=== PATIENT | male | born 1995 | race Caucasian/White ===

== ENCOUNTER 2020-09-16 17:15 | Emergency (ER) | payer BC ==
[~2020-09-16] VITALS: Ht 172.7 cm; Wt 54.4 kg
== END 2020-09-16 18:02 | disposition home or self-care (01) ==
LOC: ED 17:15
DX: S86.012A Strain of left Achilles tendon, initial encounter (principal); X50.9XXA Other and unspecified overexertion or strenuous movements or postures, initial encounter; Y93.67 Activity, basketball; F17.200 Nicotine dependence, unspecified, uncomplicated; Z88.5 Allergy status to narcotic agent
CPT/HCPCS: 99283; A9270; L4386

== ENCOUNTER 2020-11-24 12:50 | Emergency (ER) | payer BC ==
[~2020-11-24] VITALS: Ht 172.7 cm; Wt 58.7 kg
[2020-11-24] MEDS ORDERED: HYDROCODON-ACE1 EA10 PO (14:23)
== END 2020-11-24 14:38 | disposition home or self-care (01) ==
LOC: ED 12:50
DX: S46.911A Strain of unspecified muscle, fascia and tendon at shoulder and upper arm level, right arm, initial encounter (principal); X50.9XXA Other and unspecified overexertion or strenuous movements or postures, initial encounter; F17.200 Nicotine dependence, unspecified, uncomplicated; Z88.5 Allergy status to narcotic agent
CPT/HCPCS: 73030; 99283-25

== ENCOUNTER 2022-02-20 03:49 | Inpatient (IN) | payer OTHER ==
[~2022-02-20] VITALS: Ht 172.7 cm; Wt 58.7 kg
[~2022-02-20 03:49] MED LIST: HYDROCODON-ACE1 EA10 PO; NUFOLA CAPSULE1 EAC1 PO
[2022-02-20] MEDS ORDERED: METRONIDAZOLE250 MG PO (03:59)
--- NOTE | 2022-02-20 06:38 | NUR ---
PATIENT ARIVED TO THE FLOOR VIA STRETCHER. PATIENT ABLE TO AMBULATED FROM STRETCHER TO BED. ADMISSION COMPLETED. VITALS TAKEN ADN RECORDED. WIPE DOWN COMPLETED. PRE-OP CHECKLIST COMPLETED. PATIENT DENIES ANY NEEDS. NPO AT THIS TIME. MOM AND GF PRESENT IN ROOM. ALL QUESTIONS ANSWERED. CALL LIGHT IN REACH. WARM BLANKETS PROVIDED.
--- NOTE | 2022-02-20 07:39 | NUR ---
Report received from night RN - MD in room clearing pt for surgery - pt and family state understanding and have no need at this time. Call made to day surgery to communicate Pt is ready for OR.
--- NOTE | 2022-02-20 08:01 | NUR ---
PT OFF FLOOR TO OR
--- NOTE | 2022-02-20 08:38 | NUR ---
TO PATIENT ROOM TO COMPLETE CASE MANAGEMENT ASSESSMENT. PATIENT IN OR AND MOTHER ASLEEP ON THE COUCH. WILL RETURN FOR ASSESSMENT AT LATER TIME.
--- NOTE | 2022-02-20 11:17 | NUR ---
02/20/22 1117 [address] 1054 PATIENT INTO RECOVERY ROOM. REPORT RECIEVED FROM JAMAAL DAMON. PATIENT HAS OPA IN WITH A MASK OVER AT 6 LITERS. RN HOLDING AIRWAY BY JAW THRUST TO PROVIDE AIRWAY SUPPORT. BREATHING EQUAL AND UNLABORED. PATIENT IS NONAROUSABLE. SURGICAL SITES ARE CLEAN, DRY AND INTACT. PATIENT IVF INFUSING. SCD'S APPLIED. 1100 PATIENT IS STILL NONAROUSABLE. AIRWAY STILL HELD BY RN. OPA IN AND MASK OVER AT 6 LITERS. PATIENT BREATHING EQUAL AND UNLABORED. TELE ON SR. IVF INFUSING. 1103 IV TYLENOL STARTED. PATIENT HOLDING OWN AIRWAY NOW. OPA STILL INTACT AND MASK AT 6 LITERS. BREATHING EQUAL AND UNLABORED. OXYGEN SATURATION AT 95% AND ABOVE. PATIENT IS REACTIVE. 1104 OPA REMOVED AND MASK STILL ON AT 6 LITERS. BREATHING EQUAL AND LABORED. OXYGEN SATURATIONS ABOVE 95%. SR ON TELE. PATIENT IS REACTIVE BUT DOES NOT RESPOND TO VERBAL STIMULI. IVF INFUSING. 1110 OXYGEN TITRATED TO ROOM AIR. PATIENT IS DROWSY. PATIENT OXYGEN SATURATIONS ARE ABOVE 95%. BREATHING EQUAL AND UNLABORED. SR ON TELE. PATIENT DENIES ANY PAIN AND NAUSEA. IVF INFUSING.
--- NOTE | 2022-02-20 11:48 | NUR ---
PT ARRIVES TO ROOM FROM OR VIA STRETCHER - DENIES PAIN OR NAUSEA. FAMILY AT BEDSIDE. CPOX ON AND WORKING, VS STABLE.
--- NOTE | 2022-02-20 12:58 | NUR ---
RN IN ROOM TO OBTAIN POST OP VITALS AND ASSESS PT. PT ASLEEP WITH RR EVEN AND UNLABORED, CPOX IN PLACE. PT RATES PAIN 0/10, DENIES NAUSEA. DRESSING C/D/I - BOWEL TONES ABSENT. CALL LIGHT IN REACH.
--- NOTE | 2022-02-20 13:41 | NUR ---
RN IN ROOM TO ASSESS PT - SITTING UP IN BED SIPPING ON CLEAR LIQUID TRAY. RATES PAIN 09/02. STATES HE AMBULATED WITH NURSING STAFF TO URINATE IN BATHROOM. DENIES DIZZINESS OR DIFFICULTY WITH THAT. VOIDED 900ML. IV FLUIDS INFUSING WITHOUT DIFFICULTY. SCDS IN PLACE. CALL LIGHT IN REACH.
--- NOTE | 2022-02-20 15:10 | NUR ---
RN IN ROOM TO ASSESS PT - RESTING IN BED, WAKES EASILY. TOLERATING CLEAR LIQUIDS WITHOUT NAUSEA. PAIN WELL CONTROLLED AT THIS TIME, 09/02. PT REPORTS "WEIRD" SENSATION IN R THIGH, NUMBNESS AND TINGLING. FULL MOVEMENT OF LEG AND TOES. SCDS IN PLACE. IV SITE TOLERATING INFUSION WITHOUT DIFFICULTY. CALL LIGHT IN REACH.
--- NOTE | 2022-02-20 17:13 | NUR ---
RN ROUNDING ON PT - RESTING IN BED WITH EYES CLOSED, RR EVEN AND UNLABORED - CPOX IN PLACE. CALL LIGHT IN REACH. SO AT BEDSIDE.
--- NOTE | 2022-02-20 21:08 | NUR ---
pt alert an dorineted, awake, cooperative. on room air, clear ungs, reg HR, cpox post on-at bedside. midline below umbilical area opticot dressing with old drainage. L abd sided red areas from previous stoma wafers. teo, denies passing gas, tender, voiding qs, reminded to use hat or urinal. IVF infusing RAC, patent. scds in place. on clear liquids, tolerating well, no emesis. uses call light.
--- NOTE | 2022-02-20 23:15 | NUR ---
IN TO ASSIST PT WITH GETTING UP TO THE TOILET, SBA, BACK TO BED
--- NOTE | 2022-02-21 01:10 | NUR ---
RESTING, ON ROOM AIR, CPOX AT BEDSIDE POST OP, CALL LIGHT AND FLUIDS AT BEDSIDE, TURNS AND REPOSITION SELF IN BED. IVF INFUSING W/O PROBLEMS. FEMALE FRIEND ROOMING IN
--- NOTE | 2022-02-21 01:40 | NUR ---
pt awake, denies c/o abd pain, on room air, abd surgical dressing in place, old drainage opticot and ss. tender, HEA, denies passing rectal gas, burping. tolerating liquids well, ivf infusing, voiding QS. had some concerns about where he thought that he feel like he was going to fart and the fart was going to come out through his incision like when he had his stome. reassred, explained surgical procedure, expectations and concenrs to his satisfaction. both him and girlfriend stated understanding. watching tv, hob elevated.
--- NOTE | 2022-02-21 02:06 | NUR ---
PT USED CALL LIGHT, "I PASSED GAS RECTALLY"
--- NOTE | 2022-02-21 02:29 | NUR ---
USED CALL LIGHT, PASSING MORE RECTAL GAS, UP TO BR, VOIDED QS YELLOW URINE. BACK TO BED, TOLERATED WELL, NO C/O PAIN. IVF INFUSING, SCDS INPLACE, CALL LIGHT AND FLUIDS AT BEDSIDE
--- NOTE | 2022-02-21 04:30 | NUR ---
awake, watching tv, no c/o abd pain, stated passing gas rectally. ivf infusing w/o problems, tolerating liquids well, no emesis
--- NOTE | 2022-02-21 05:28 | NUR ---
Pt has been awake watching tv most of this shift. On room air. IVF infusing w/o problems. abd midline incsion with Opticot/gauze and ss with old drainage. HEA, passing gas. abd tender, has been medicated with scheduled Tylenol and Toradol PRn, effective. redness around old stomawafer site present, no new red areas noted. Pt has been reassured as he was concerned earlier on the shift about feeling fearful about passing rectal gas through his new abd incision site, had a colostomy takedown. Was reassured multiple times and feels better now. tolerating liquids well, no bm this shift, voiding QS. SCDS in place, walkes to with SBA and independent. tolerating very well. AOx4, pleasant and coop. significant other rooming in.
--- NOTE | 2022-02-21 10:23 | NUR ---
PATIENT SAID HE WOULD LIKE TO TAKE A SHOWER IF IT IS OK WITH THE DOCTOR BUT IF HE CAN'T THAN HE SAID HE WOULD DO A BED BATH.
--- NOTE | 2022-02-21 11:34 | NUR ---
Patient reports he is feeling well this morning, pain is tolerable, no n/v, graeme clears well. Pt showered and walked this morning. Patient requesting to discharge home as soon as possible. Updated pt on plan of care. No current needs. Personal supplies and call light within reach.
--- NOTE | 2022-02-21 12:46 | NUR ---
Patient ambulated in hallway x2 laps, tolerated well. Patient reports he continues to feel well this afternoon; + bowel tones x4 quadrants, no nausea, graeme clears. Mom and girlfriend at bedside assisting with cares. IV fluids infusing per provider order. Personal supplies and call light within reach.
[2022-02-21] MEDS ORDERED: ACETAMINOPHEN500 MG PO (14:26)
[2022-02-21] MEDS ORDERED: HYDROCODON-ACE1 EA11 PO (14:27)
[2022-02-21] MEDS ORDERED: MOTRIN IB200 MG PO (14:27)
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
--- NOTE | 2022-02-21 15:20 | NUR ---
Patient tolerated solid food, no nausea. Pain is tolerable, pt reports he is doing well. IV removed, education provided to patient and mother at bedside.
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
== END 2022-02-21 15:39 | disposition home or self-care (01) | DRG 346 ==
LOC: ED 03:49 → MS 03:51
PROVIDERS: ADMIT Surgery; ATTEND Surgery
PROC: 0DSN0ZZ Reposition Sigmoid Colon, Open Approach (ICD-10-PCS; principal; 2022-02-20 07:15)
DX: Z43.3 Encounter for attention to colostomy (principal); E86.0 Dehydration; R11.2 Nausea with vomiting, unspecified; F17.210 Nicotine dependence, cigarettes, uncomplicated; Z90.49 Acquired absence of other specified parts of digestive tract; Z98.890 Other specified postprocedural states; Z88.5 Allergy status to narcotic agent; Z79.2 Long term (current) use of antibiotics
CPT/HCPCS: 36415; 74018; 76942; 80048; 80053; 81001; 82248; 83735; 85025; 96361; 96374; 96375; 99285-25; A9270; C9113; J0690; J0694; J1100; J1170; J1644; J1790; J1885; J2001; J2405; J2704; J2795; J3010; J7121

== ENCOUNTER 2022-02-28 19:20 | Emergency (ER) | payer OTHER ==
[~2022-02-28] VITALS: Ht 172.7 cm; Wt 58.5 kg
[~2022-02-28 19:20] MED LIST changes: +ACETAMINOPHEN500 MG PO; +HYDROCODON-ACE1 EA11 PO; +METRONIDAZOLE250 MG PO; +MOTRIN IB200 MG PO
--- OUTSIDE RECORDS SUMMARY | 2022-02-28 19:22 | XMS ---
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 Feroz VISIT COUNT (12 MO.) [address] [facility] TOTAL 2 NOTE: Visits indicate total known visits. 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 - Encounter for attention to colostomy - Dehydration - Nicotine dependence, cigarettes, uncomplicated - Other specified postprocedural states - Encounter for attention to colostomy - Allergy status to narcotic agent - Acquired absence of other specified parts of digestive tract - 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 - Other specified postprocedural states - Nausea with vomiting, unspecified 09/06/2021 21:57 [facility] OR TYPE: Surgery DIAGNOSES: - Puncture wound without foreign body, left foot, initial encounter - Puncture wound without foreign body of unspecified hand, initial encounter - Puncture wound of abdominal wall without foreign body, unspecified quadrant without penetration into peritoneal cavity, initial encounter - Displaced fracture of first metatarsal bone, left foot, initial encounter for open fracture - Puncture wound without foreign body of lower back and pelvis without penetration into retroperitoneum, initial encounter - Displaced fracture of base of third metacarpal bone, left hand, initial encounter for closed fracture - Colostomy status - Unspecified injury of bladder, initial encounter [email or web address]
== END 2022-02-28 20:56 | disposition home or self-care (01) ==
LOC: ED 19:20
DX: K91.872 Postprocedural seroma of a digestive system organ or structure following a digestive system procedure (principal); F17.200 Nicotine dependence, unspecified, uncomplicated; Z88.5 Allergy status to narcotic agent; Z79.899 Other long term (current) drug therapy
CPT/HCPCS: 36415; 76705; 85025; 99284-25

== ENCOUNTER 2023-07-02 14:20 | Emergency (ER) | payer OTHER ==
[~2023-07-02] VITALS: Ht 172.7 cm; Wt 5857.2 kg
[2023-07-02 15:30] VITALS: BP 112/75
== END 2023-07-02 15:30 | disposition home or self-care (01) ==
LOC: ED 14:20
DX: S59.202A Unspecified physeal fracture of lower end of radius, left arm, initial encounter for closed fracture (principal); W19.XXXA Unspecified fall, initial encounter; F17.200 Nicotine dependence, unspecified, uncomplicated; Z88.5 Allergy status to narcotic agent; Z79.899 Other long term (current) drug therapy
CPT/HCPCS: 73110; 99283-25

== ENCOUNTER 2024-11-05 09:14 | Emergency (ER) | payer OTHER ==
[~2024-11-05] VITALS: Ht 172.7 cm; Wt 62.6 kg
[2024-11-05] MEDS ORDERED: IBUPROFEN 600 MG TAB PO ONE (09:45)
[2024-11-05] MEDS ORDERED: ACETAMINOPHEN 500 MG TAB PO ONE (09:45)
[2024-11-05 10:20] VITALS: BP 111/75
== END 2024-11-05 10:21 | disposition home or self-care (01) ==
LOC: ED 09:14
DX: B34.9 Viral infection, unspecified (principal); F17.200 Nicotine dependence, unspecified, uncomplicated; Z88.5 Allergy status to narcotic agent
CPT/HCPCS: 87651; 99284; A9270